=== PATIENT | female | born 1985 | race Hispanic/Latino ===

== ENCOUNTER 2023-12-04 14:39 | Emergency (ER) | payer SELFPAY ==
[~2023-12-04] VITALS: Ht 157.5 cm; Wt 78.9 kg
[2023-12-04 15:52] LABS: BASOPHILS # (AUTO) 0.06 K/uL (0.00-0.20); BASOPHILS % (AUTO) 0.6 % (0.0-5.0); EOSINOPHILS # (AUTO) 0.19 K/uL (0.00-0.70); EOSINOPHILS % (AUTO) 1.8 % (0.0-8.0); HEMATOCRIT 38.7 % (36-48); IMMATURE GRANULOCYTE ABSOLUTE 0.17 K/uL (0-1); LYMPHOCYTES # (AUTO) 3.1 K/uL (1.0-4.8); LYMPHOCYTES % (AUTO) 29.4 % (21.0-51.0); MEAN CORPUSCULAR HEMOGLOBIN 29.2 pg (27.0-33.0); MEAN CORPUSCULAR HGB CONC 33.6 g/dL (32.0-36.0); MONOCYTES # (AUTO) 0.6 K/uL (0.1-1.0); MONOCYTES % (AUTO) 5.6 % (3.0-13.0); NEUTROPHILS # (AUTO) 6.4 K/uL (1.8-7.7); PLATELET COUNT (AUTO) 347 K/uL (130-400); RED BLOOD CELL COUNT(AUTO) 4.45 MIL/uL (4.00-5.50); RED CELL DISTRIBUTION WIDTH 13.3 % (11.0-15.5); WHITE BLOOD COUNT (AUTO) 10.5 K/uL (4.8-10.8)
[2023-12-04 15:56] LABS: CREATININE 0.8 mg/dL (0.5-1.0); POTASSIUM 3.8 mmol/L (3.5-5.1)
[2023-12-04] MEDS: ondanSETRON 4MG INJ IVP ONE (16:42)
[2023-12-04] MEDS: morPHINE 2 MG SYG IVP ONE (16:42)
[2023-12-04] MEDS ORDERED: SULF1TAB42 PO (16:56)
[2023-12-04] MEDS: cefTRIAXone 1G VIAL IVPB ONE (17:36)
[2023-12-04] MEDS: ketOROlac 15MG/ML VIAL (15MG/ML) IV ONE (17:37)
[2023-12-04 17:50] VITALS: BP 146/85; PULSE 76; RESP 18; TEMP 98.9; O2SAT 100
== END 2023-12-04 18:09 | disposition home or self-care (01) ==
LOC: EDH 14:39
DX: L03.113 Cellulitis of right upper limb (principal); I10 Essential (primary) hypertension; M79.601 Pain in right arm; Z90.49 Acquired absence of other specified parts of digestive tract
CPT/HCPCS: 99285; 96374; 96375; 93971; 80048; 84703; 85025; 83605; 36415; 84145; J2270; J0696; J2405; J1885